=== PATIENT | male | born 1950 | race Caucasian/White ===

== ENCOUNTER → 2025-05-29 | Outpatient (CLI) | payer MEDICARE | END | disposition home or self-care (01) | LOC: RAD 09:33 | PROVIDERS: ATTEND Internal Medicine | DX: I87.2 Venous insufficiency (chronic) (peripheral) (principal); I70.213 Atherosclerosis of native arteries of extremities with intermittent claudication, bilateral legs; I87.8 Other specified disorders of veins | CPT/HCPCS: 93922; 93925; 93970 ==